=== PATIENT | female | born 1970 | race African-American/Black ===

== ENCOUNTER 2016-08-10 21:11 | Emergency (ER) | payer MEDICAID ==
--- NOTE | 2016-08-10 23:32 | ED Physician Chart ---
Chief Complaint/HPI - Patient Information Date Seen:: 08/10/16 Time Seen:: 21:44 Chief Complaint:: NEED MED REFILL History of Present Illness:: THIS IS A 46 YO BLACK FEMALE WITH A REQUEST OF A REFILL OF HER HERPES MEDICATION. THIS PATIENT STATES THAT EVERY YEAR SHE HAS A FLAREUP OF HER HERPETIC RASH ON HER LEG AND THIGHS. SHE STATES THAT SHE CAN TELL WHEN IT IS GOING TO HAPPEN AND WANT MEDS TO TREAT IT PROPHALACTICALLY SHE DENIES FEVER, COUGH AND CHEST CONGESTION. Allergies:: Allergies Allergy/AdvReac Type Severity Reaction Status Date / Time No Known Allergies Allergy Verified 08/10/16 22:00 Vitals:: Vital Signs - 8 hr 08/10/16 08/10/16 21:30 22:15 Temp 98.2 F 98.1 F HR 80 75 RR 18 18 BP 118/64 120/65 O2 Sat % 96 98 Historian:: Patient Review:: Nurse's Note Reviewed, Old Chart Reviewed Review of Systems - Review of Systems General/Constitutional: No fever, No chills, No weight loss, No weakness, No diaphoresis, No edema, No loss of appetite Skin: No skin lesions, Rash, No bruising Head: No headache, No light-headedness Eyes: No loss of vision, No pain, No diplopia ENT: No earache, No nasal drainage, No sore throat, No tinnitus Neck: No neck pain, No swelling, No thyromegaly, No stiffness, No mass noted Cardio Vascular: No chest pain, No palpitations, No PND, No orthopnea, No edema Pulmonary: No SOB, No cough, No sputum, No wheezing GI: No nausea, No vomiting, No diarrhea, No pain, No melena, No hematochezia, No constipation, No hematemesis G/U: No dysuria, No frequency, No hematuria Musculoskeletal: No bone or joint pain, No back pain, No muscle pain Endocrine: No polyuria, No polydipsia Psychiatric: No prior psych history, No depression, No anxiety, No suicidal ideation Hematopoietic: No bruising, No lymphadenopathy Allergic/Immuno: No urticaria, No angioedema Neurological: No syncope, No focal symptoms, No weakness, No paresthesia, No headache, No seizure, No dizziness, No confusion, No vertigo Past Medical History - Past Medical History Obtainable: Yes Past Medical History: Renal stone, Other (BACK PAIN) Social History: Non Smoker, No Alcohol, No Drug Use Surgical History: Psychiatricy History: None Family Medical History - Family Member Mother History Unknown: Yes Ethnicity: Unknown Living Status: Still Living Hx Family Cancer: No Hx Family Coronary Artery Disease: No Hx Family Congestive Heart Failure: No Hx Family Hypertension: No Hx Family Stroke: No Hx Family Diabetes: Yes Hx Family Seizures: No Hx Family Dementia: No Hx Family AIDS: No Hx Family HIV: No Hx Family COPD: No Hx Family Hepatitis: No Hx Family Psychiatric Problems: No Hx Family Tuberculosis: No Physical Exam - Physical Examination General/Constitutional: Awake, Well-developed, well-nourished, Alert, No distress, GCS 15, Non-toxic appearing, Ambulatory Head: Atraumatic Eyes: Lids, conjuctiva normal, PERRL, EOMI Skin: Nl inspection, No rash, No skin lesions, No ecchymosis, Well hydrated, No lymphadenopathy ENMT: External ears, nose nl, Nasal exam nl, Lips, teeth, gums nl Neck: Nontender, Full ROM w/o pain, No JVD, No nuchal rigidity, No bruit, No mass, No stridor Respiratory: Nl effort/Exclusion, Clear to Auscultation, No Wheeze/Rhonchi/Rales Cardio Vascular: RRR, No murmur, gallop, rubs, NL S1 S2 GI: No tenderness/rebounding/guarding, No organomegaly, No hernia, Normal BS's, Nondistended, No mass/bruits, No McBurney tenderness : No CVA tenderness Extremities: No tenderness or effusion, Full ROM, normal strength in all extremities, No edema, Normal digits & nails Neuro/Psych: Alert/oriented, DTR's symmetric, Normal sensory exam, Normal motor strength, Judgement/insight normal, Mood normal, Normal gait, No focal deficits Misc: normal gait, Normal back, No paraspinal tenderness ED Septic Shock - . Is Septic Shock (SBP<90, OR Lactate>4 mmol\L) present?: No - <6hrs of presentation: Vital Signs: Vital Signs - 8 hr 08/10/16 08/10/16 21:30 22:15 Temp 98.2 F 98.1 F HR 80 75 RR 18 18 BP 118/64 120/65 O2 Sat % 96 98 Reassessment (Disposition) - Reassessment Reassessment Condition:: Unchanged - Diagnosis Diagnosis:: HERPETIC RASH - Aftercare/Follow up Instructions Aftercare/Follow-Up Instructions:: Counseled pt regarding lab results/diagnosis & need follow up, Refer to Discharge Instructions, Counseled pt & family regarding lab results/diagnosis & need follow up - Patient Disposition Discharge/Transfer:: Home Condition at Disposition:: Unchanged ED Discharge Plan - Patient Disposition Admit/Discharge/Transfer: PT DISCHARGED HOME Condition at Disposition: Unchanged Instructions: Acyclovir tablets or capsules Additional Instructions: take medication as prescribed.
== END 2016-08-10 22:15 | disposition home or self-care (01) ==
LOC: ER 21:11
DX: B00.9 Herpesviral infection, unspecified (principal); Z76.0 Encounter for issue of repeat prescription
CPT/HCPCS: Z7502